=== PATIENT | female | born 1930 | race Caucasian/White ===

== ENCOUNTER 2017-12-27 09:26 | Emergency (ER) | payer BC ==
[~2017-12-27] VITALS: Ht 160 cm; Wt 62.1 kg
--- NOTE | 2017-12-27 09:45 | NUR ---
dr wagner at bedside for eval.
[2017-12-27] MEDS ORDERED: HYDROCODONE/APAP 5/325MG 1 EACH TABLET PO ONE (10:00)
[2017-12-27] MEDS ORDERED: HYDROCODONE/APAP 5/325MG 1 EACH TABLET ONE (10:04)
--- NOTE | 2017-12-27 10:08 | NUR ---
pt to radiology for bilat rib/chest xray via [facility].
--- NOTE | 2017-12-27 11:15 | NUR ---
Patient discharged to home in stable condition. Written and verbal after care instructions given. Patient verbalizes understanding of instruction.
[2017-12-27 11:16] VITALS: BP 152/60
== END 2017-12-27 11:17 | disposition home or self-care (01) ==
LOC: ER 09:29
DX: S20.212A Contusion of left front wall of thorax, initial encounter (principal); S20.211A Contusion of right front wall of thorax, initial encounter; I10 Essential (primary) hypertension; Z86.73 Personal history of transient ischemic attack (TIA), and cerebral infarction without residual deficits; E11.9 Type 2 diabetes mellitus without complications; Z88.8 Allergy status to other drugs, medicaments and biological substances; W01.0XXA Fall on same level from slipping, tripping and stumbling without subsequent striking against object, initial encounter; Y93.89 Activity, other specified; Y92.000 Kitchen of unspecified non-institutional (private) residence as the place of occurrence of the external cause; Y99.8 Other external cause status
CPT/HCPCS: 71111; 99284; A4606; Z7610

== ENCOUNTER 2022-01-15 13:01 | Inpatient (IN) | payer BC ==
[~2022-01-15] VITALS: Ht 160 cm; Wt 66.2 kg
--- NOTE | 2022-01-15 13:30 | NUR ---
SINCERE RA878 Mechanical trip/fall was seen in [place] and sent home but now having worse pain. PLACED ON BED, AAOX4, BREATHING EVEN AND UNLABORED SATURATING AT 96%RA, COMPLAINS OF PAIN AT LEFT SIDE CHEST- MID AXILLA EVERYTIME SHE MOVES 10/10 PS.
--- NOTE | 2022-01-15 14:30 | NUR ---
CASING TIER AT BED SIDE
[2022-01-15] MEDS ORDERED: FLUT16SP16 BNOSTRILS (14:36)
[2022-01-15] MEDS ORDERED: PHEN-895 PO (14:36)
[2022-01-15] MEDS ORDERED: PANT40TA49 PO (14:36)
[2022-01-15] MEDS ORDERED: GABA-532 PO (14:36)
[2022-01-15] MEDS ORDERED: TRAM50TA2 PO (14:36)
[2022-01-15] MEDS ORDERED: AMLO2.5T4 PO (14:36)
[2022-01-15] MEDS ORDERED: FAMO40TA7 PO (14:36)
--- NOTE | 2022-01-15 14:45 | NUR ---
MOVE SHEET SUBMITTED.
--- NOTE | 2022-01-15 14:59 | NUR ---
SWAB FOR COVID19 SENT TO LAB
[2022-01-15] MEDS ORDERED: ONDANSETRON HCL/PF 4 MG/2 ML VIAL IVP PRN (15:00)
[2022-01-15] MEDS ORDERED: FLUTICASONE PROPIONATE 16 GM BOTTLE NS PRN (15:00)
[2022-01-15] MEDS ORDERED: Z GUARD REMEDY 4 OZ OINT TP PRN (15:00)
[2022-01-15] MEDS ORDERED: ACETAMINOPHEN 325 MG TABLET PO PRN (15:00)
[2022-01-15] MEDS ORDERED: ZOLPIDEM TARTRATE 5 MG TABLET PO PRN (15:00)
[2022-01-15] MEDS ORDERED: MAG HYDROX/AL HYDROX/SIMETH 30 ML UDC PO PRN (15:00)
[2022-01-15] MEDS ORDERED: MAGNESIUM HYDROXIDE 30 ML UDC PO PRN (15:00)
[2022-01-15 15:22] LABS: BASOPHILS % (AUTO) 0.1 % (0.0-2.0); EOSINOPHILS % (AUTO) 2.7 % (0.0-6.0); HEMATOCRIT 40 % (33-45); HEMOGLOBIN 13.4 g/dL (11.5-14.8); LYMPHOCYTES # (AUTO) 0.8 K/uL (0.8-4.8); LYMPHOCYTES % (AUTO) 9.2 % (20.0-44.0); MEAN CORPUSCULAR HGB CONC 33 g/dl (31.0-36.0); MEAN CORPUSCULAR VOLUME 93 fL (82-100); MONOCYTES # (AUTO) 0.4 K/uL (0.1-1.30); MONOCYTES % (AUTO) 4.5 % (2.0-12.0); NEUTROPHILS # (AUTO) 7.3 K/uL (1.8-8.9); NEUTROPHILS % (AUTO) 83.5 % (43.0-81.0); PLATELET COUNT (AUTO) 103 K/uL (150-450); RED BLOOD CELL COUNT(AUTO) 4.32 MIL/uL (4.0-5.2); WHITE BLOOD COUNT (AUTO) 8.7 K/uL (4.3-11.0)
[2022-01-15 15:39] LABS: CALCIUM, SERUM 9.5 mg/dL (8.5-10.1); CARBON DIOXIDE 25 mmol/L (21-32); CHLORIDE 99 mmol/L (98-107); GLUCOSE 115 mg/dL (74-106); POTASSIUM 3.4 mmol/L (3.5-5.1); SODIUM SERUM 134 mmol/L (136-145); UREA NITROGEN, BLOOD 24 mg/dL (7-18)
--- NOTE | 2022-01-15 16:56 | NUR ---
REPORT GIVEN TO EMILIANO RN ROOM 324-1 FOR NADEGE
--- NOTE | 2022-01-15 17:00 | NUR ---
RN Receiving Note PT Arrived to unit safely via reuben, Anuja, reports discomfort and pain. Patient able to express her own concerns, and able to provide history. Pictures of bruises taken and in chart. All safety precautions taken, call light and table within reach, bed at lowest. Will move forward with initial assessment.
[2022-01-15 17:30] LABS: COLOR,URINE ORANGE (YELLOW)
[2022-01-15 17:33] LABS: BACTERIA,URINE 3+ /HPF (None Seen); WBC,URINE 81-100 /HPF (0-3)
[2022-01-15] MEDS: GABAPENTIN 100 MG CAPSULE PO SCH (18:35)
[2022-01-15] MEDS: IV NS 0.9% 1,000 ML IV PRN (18:36)
[2022-01-15] MEDS: TRAMADOL HCL 50 MG TABLET PO PRN (18:36)
--- NOTE | 2022-01-15 19:30 | NUR ---
RN OPENING NOTES RECEIVED PATIENT IN BED SLEEPING, EASY TO ROUSE WITH STIMULI. A/O X 4, TOLERATING WELL ON ROOM AIR WITH NO S/S RESPIRATORY DISTRESS. NO COMPLAINTS OF PAIN OR DISCOMFORT AT THIS TIME. INFUSING NS @ 75 ML/HR @ R AC. SAFETY MEASURES IN PLACE. BED IN LOWEST POSITION, SIDE RAILS UP X 2, WHEELS LOCKED, CALL LIGHT WITHIN REACH. WILL CONTINUE TO MONITOR.
--- NOTE | 2022-01-15 19:53 | NUR ---
RN Closing Note PT AOx4 able to express her own concerns. Patient is sleeping with no signs of distress or discomfort. IV Fluids ruining as ordered on Right FA, 20g no sign signs of infiltration. All safety precautions taken, call light and table within reach, bed at lowest position. Will endorse to night nurse pts status and plan of care.
[2022-01-15 20:00] VITALS: BP 133/57
[2022-01-15] MEDS: FAMOTIDINE (20 MG) 20 MG TABLET PO SCH (22:32)
--- NOTE | 2022-01-16 06:44 | NUR ---
RN CLOSING NOTES PATIENT IS IN BED SLEEPING, EASY TO ROUSE WITH STIMULI. NO DISTRESS NOTED AT THIS TIME. REQUESTED PAIN MED (TYLENOL 650) AT 0330. WILL ENDORSE TO THE ONCOMING NURSE.
[2022-01-16 07:06] LABS: BASOPHILS % (AUTO) 0.1 % (0.0-2.0); EOSINOPHILS % (AUTO) 4.8 % (0.0-6.0); HEMATOCRIT 40 % (33-45); HEMOGLOBIN 13.4 g/dL (11.5-14.8); LYMPHOCYTES # (AUTO) 0.8 K/uL (0.8-4.8); LYMPHOCYTES % (AUTO) 13.8 % (20.0-44.0); MEAN CORPUSCULAR HGB CONC 34 g/dl (31.0-36.0); MEAN CORPUSCULAR VOLUME 93 fL (82-100); MONOCYTES # (AUTO) 0.3 K/uL (0.1-1.30); MONOCYTES % (AUTO) 5.4 % (2.0-12.0); NEUTROPHILS # (AUTO) 4.4 K/uL (1.8-8.9); NEUTROPHILS % (AUTO) 75.9 % (43.0-81.0); PLATELET COUNT (AUTO) 99 K/uL (150-450); RED BLOOD CELL COUNT(AUTO) 4.29 MIL/uL (4.0-5.2); WHITE BLOOD COUNT (AUTO) 5.8 K/uL (4.3-11.0)
--- NOTE | 2022-01-16 07:18 | NUR ---
RN OPENING NOTES RECEIVED PATIENT IN BED , AWAKE AND VERBALLY RESPONSIVE . A/O X 4, TOLERATING WELL ON ROOM AIR WITH NO S/S RESPIRATORY DISTRESS. NO COMPLAINTS OF PAIN OR DISCOMFORT AT THIS TIME. INFUSING NS @ 75 ML/HR @ R AC. SAFETY MEASURES IN PLACE. BED IN LOWEST POSITION, SIDE RAILS UP X 2, WHEELS LOCKED, CALL LIGHT WITHIN REACH. WILL CONTINUE TO MONITOR.
[2022-01-16 07:44] LABS: CALCIUM, SERUM 9.2 mg/dL (8.5-10.1); MAGNESIUM 2.2 mg/dL (1.8-2.4); PHOSPHORUS 3.4 mg/dL (2.5-4.9); POTASSIUM 3.7 mmol/L (3.5-5.1)
[2022-01-16] MEDS: PANTOPRAZOLE 40 MG TABLET.DR PO SCH (08:13)
[2022-01-16] MEDS: AMLODIPINE BESYLATE 2.5 MG TABLET PO SCH (08:14)
[2022-01-16] MEDS: GABAPENTIN 100 MG CAPSULE PO SCH ×2 (08:15→17:15)
[2022-01-16] MEDS: HYDROMORPHONE 1 MG/1 ML DISP.SYRIN IV PRN (10:37)
--- NOTE | 2022-01-16 10:37 | NUR ---
RN NOTES PATIENT C/O OF SEVERE PAIN AND DILAUDID IV GIVEN ORDERED
[2022-01-16] MEDS: CEFTRIAXONE 1 G in IV D5W 50 ML IV SCH (11:11)
[2022-01-16 18:57] VITALS: BP 123/51
--- NOTE | 2022-01-16 19:00 | NUR ---
RN CLOSING NOTES PATIENT IN BED , AWAKE AND VERBALLY RESPONSIVE . A/O X 4, TOLERATING WELL ON ROOM AIR WITH NO S/S RESPIRATORY DISTRESS. COMPLAINTS OF PAIN OR DISCOMFORT DILAUDID IV GIVEN WITH HELP , ALL DUE MEDS GIVEN AND IV ATB OF [place]IPHEN GIVEN . INFUSING NS @ 75 ML/HR @ R AC. SAFETY MEASURES IN PLACE. BED IN LOWEST POSITION, SIDE RAILS UP X 2, WHEELS LOCKED, CALL LIGHT WITHIN REACH. ENDORSED TO NEXT SHIFT
--- NOTE | 2022-01-16 19:47 | NUR ---
RN OPENING NOTES RECEIVED PATIENT IN BED AA/O X 4,ABLE TO MAKE NEEDS KNOWN,TOLERATING WELL ON ROOM AIR,NO SIGN SOB/ RESPIRATORY DISTRESS. NO COMPLAINTS OF PAIN OR DISCOMFORT AT THIS TIME. INFUSING NS @ 75 ML/HR @ R AC. SAFETY MEASURES IN PLACE. BED IN LOWEST POSITION, SIDE RAILS UP X 2, WHEELS LOCKED, CALL LIGHT WITHIN REACH. WILL CONTINUE TO MONITOR.
[2022-01-16 20:00] VITALS: BP 134/55
[2022-01-16] MEDS: FAMOTIDINE (20 MG) 20 MG TABLET PO SCH (21:56)
--- NOTE | 2022-01-17 06:34 | NUR ---
RN CLOSING NOTES; PATIENT IN BED AA/O X 4,ABLE TO MAKE NEEDS KNOWN,TOLERATING WELL ON ROOM AIR,NO SIGN SOB/ RESPIRATORY DISTRESS. NO COMPLAINTS OF PAIN OR DISCOMFORT DURING SHIFT,DUE MEDS GIVEN ORDER,ALL NEEDS ATTENDED,. INFUSING NS @ 75 ML/HR @ R AC. SAFETY MEASURES IN PLACE. BED IN LOWEST POSITION, SIDE RAILS UP X 2, WHEELS LOCKED, CALL LIGHT WITHIN REACH. WILL ENDORSED TO NEXT SHIFT.
[2022-01-17 06:58] LABS: CALCIUM, SERUM 9.2 mg/dL (8.5-10.1); CREATININE 0.9 mg/dL (0.6-1.3); POTASSIUM 4.4 mmol/L (3.5-5.1)
--- NOTE | 2022-01-17 07:54 | NUR ---
RN OPENING NOTE PATIENT AWAKE IN BED RESTING. A/O X 4. NO PAIN NOTED AT THIS TIME. ON ROOM AIR, NO DISTRESS OR SHORTNESS OF BREATH NOTED. IV ACCESS RAC #20G, INTACT, PATENT AND FLUSHING WELL. FALL AND SAFETY MEASURES IN PLACE, BED IN LOW AND LOCK POSITION, CALL LIGHT AND TABLE WITHIN EASY REACH, SIDE RAILS UP X2. WILL CONTINUE TO MONITOR.
[2022-01-17 08:00] VITALS: BP 127/62
[2022-01-17] MEDS: GABAPENTIN 100 MG CAPSULE PO SCH ×2 (09:16→17:39)
[2022-01-17] MEDS: AMLODIPINE BESYLATE 2.5 MG TABLET PO SCH (09:16)
[2022-01-17] MEDS: PANTOPRAZOLE 40 MG TABLET.DR PO SCH (09:16)
--- NOTE | 2022-01-17 11:36 | NUR ---
RN NOTES MD AWARE REGARDING PATIENTS VTE SCORE IS 3 AND NO CHEMICAL PROPHYLAXIS FOR THE PATIENT AT THIS TIME , WAITING FOR NEW ORDER
[2022-01-17] MEDS: CEFTRIAXONE 1 G in IV D5W 50 ML IV SCH (11:57)
[2022-01-17] MEDS: IV NS 0.9% 1,000 ML IV PRN (12:59)
[2022-01-17 16:00] VITALS: BP 135/51
--- NOTE | 2022-01-17 19:28 | NUR ---
RN OPENING NOTE PATIENT AWAKE IN BED RESTING. A/O X 4. NO PAIN NOTED AT THIS TIME. ON ROOM AIR, NO DISTRESS OR SHORTNESS OF BREATH NOTED. IV ACCESS RAC #20G, INTACT, PATENT AND FLUSHING WELL. SCHEDULE MEDICATIONS ADMINISTERED. FALL AND SAFETY MEASURES IN PLACE, BED IN LOW AND LOCK POSITION, CALL LIGHT AND TABLE WITHIN EASY REACH, SIDE RAILS UP X2. WILL ENDORSE TO SATELLITE DISH INSTALLER.
--- NOTE | 2022-01-17 19:30 | NUR ---
MS RN NOTES RECEIVED LAYING COMFORTABLY ON BED,BREATHING REGULAR,NOT IN ANY FORM OF DISTRESS.SALINE LOCK RIGHT AC INTACT AND PATENT.COMPLAINTS OF RIGHT SHOULDER PAIN 3/10 ON PAIN SCALE,AWAITING RIGHT SHOULDER X-RAY.ASSIST WITH ADL'S,CALL LIGHT IN REACH,NEEDS ANTICIPATED.
[2022-01-17 20:00] VITALS: BP_SYST 113; BP_SYST 122; BP_DIAS 58; BP_DIAS 70
--- NOTE | 2022-01-17 20:30 | NUR ---
MS RN NOTES IN PUMP KEEP ON ALARMING.SALINE LOCK ON RIGHT AC AND PATIENT CAN CONTROL HERSELF TO BEND THE RIGHT ELBOW.NEW SALINE LOCK PLACE ON LEFT WRIST #22,FLUSHED AND KEPT PATENT.IVF INFUSING THIS TIME VIA IV PUMP.
[2022-01-17] MEDS ORDERED: ENOXAPARIN SODIUM 40 MG/0.4 ML DISP.SYRIN SQ ONE (21:00)
--- NOTE | 2022-01-17 21:00 | NUR ---
MS RN NOTES PLATELETS 99,WITH LOVENOX 40MG SQ ONE TIME DOSE,VERIFIED WITH HOSPITALIST ANGELICA IF OKAY TO GIVE AND HE SAID, OKAY TO GIVE, ADMINISTERED.
[2022-01-17] MEDS: FAMOTIDINE (20 MG) 20 MG TABLET PO SCH (22:04)
[2022-01-18] MEDS: HYDROMORPHONE 1 MG/1 ML DISP.SYRIN IV PRN ×2 (03:54→23:26)
--- NOTE | 2022-01-18 03:54 | NUR ---
MS RN NOTES PAIN MANAGEMENT C/O RIGHT SHOULDER PAIN 8/10 ON PAIN SCALE,DILAUDID 1MG IV GIVEN ORDERED.VITAL SIGNS STABLE.
[2022-01-18 06:03] LABS: EOSINOPHILS % (AUTO) 5.6 % (0.0-6.0); HEMATOCRIT 38 % (33-45); HEMOGLOBIN 12.7 g/dL (11.5-14.8); LYMPHOCYTES % (AUTO) 23.3 % (20.0-44.0); MEAN CORPUSCULAR HGB CONC 33 g/dl (31.0-36.0); MEAN CORPUSCULAR VOLUME 93 fL (82-100); MONOCYTES # (AUTO) 0.5 K/uL (0.1-1.30); NEUTROPHILS # (AUTO) 2.6 K/uL (1.8-8.9); NEUTROPHILS % (AUTO) 59.1 % (43.0-81.0); PLATELET COUNT (AUTO) 104 K/uL (150-450); RED BLOOD CELL COUNT(AUTO) 4.11 MIL/uL (4.0-5.2); WHITE BLOOD COUNT (AUTO) 4.4 K/uL (4.3-11.0)
--- NOTE | 2022-01-18 06:40 | NUR ---
MS RN NOTES ON BED SLEEPING.STILL WITH ON AND OFF GENERALIZED PAIN,PT/OT EVAL FOR MOBILITY.ALL DUE MEDS ADMINISTERED SCHEDULED.IVF INFUSING WELL ON LEFT WRIST.IN NO ACUTE DISTRESS.
[2022-01-18 07:34] LABS: CALCIUM, SERUM 8.8 mg/dL (8.5-10.1); CARBON DIOXIDE 26 mmol/L (21-32); CHLORIDE 105 mmol/L (98-107); CREATININE 0.8 mg/dL (0.6-1.3); GLUCOSE 115 mg/dL (74-106); MAGNESIUM 2.2 mg/dL (1.8-2.4); PHOSPHORUS 3.3 mg/dL (2.5-4.9); POTASSIUM 3.7 mmol/L (3.5-5.1); SODIUM SERUM 138 mmol/L (136-145); UREA NITROGEN, BLOOD 19 mg/dL (7-18)
--- NOTE | 2022-01-18 07:40 | NUR ---
RN OPENING NOTE RECEIVED PATIENT ASLEEP IN BED RESTING BUT EASILY ROUSED. A/O X 4, DENIES PAIN AT THIS TIME. ON ROOM AIR, NO DISTRESS OR SHORTNESS OF BREATH NOTED. IV ACCESS RAC #20G, INTACT, PATENT AND FLUSHING WELL. FALL AND SAFETY MEASURES IN PLACE, BED IN LOW AND LOCK POSITION, CALL LIGHT AND TABLE WITHIN EASY REACH, SIDE RAILS UP X2, WILL CONT WITH PLAN OF CARE DURING SHIFT.
[2022-01-18 08:00] VITALS: BP 136/46
[2022-01-18] MEDS: GABAPENTIN 100 MG CAPSULE PO SCH ×2 (08:37→16:54)
[2022-01-18] MEDS: AMLODIPINE BESYLATE 2.5 MG TABLET PO SCH (08:37)
[2022-01-18] MEDS: PANTOPRAZOLE 40 MG TABLET.DR PO SCH (08:37)
[2022-01-18] MEDS: CEFTRIAXONE 1 G in IV D5W 50 ML IV SCH (10:59)
[2022-01-18] MEDS: IV NS 0.9% 1,000 ML IV PRN (11:05)
[2022-01-18 16:00] VITALS: BP 146/58
--- NOTE | 2022-01-18 18:49 | NUR ---
MS RN CLOSING NOTES; PATIENT AWAKE IN BED RESTING. A/O X 4, DENIES PAIN AT THIS TIME. ON ROOM AIR, NO DISTRESS OR SHORTNESS OF BREATH NOTED. IV ACCESS L WRIST #22, RUNNING NS @ 75ML/HR. DUE MEDS GIVE, MADE COMFORTABLE, DRY AND CLEAN. FALL AND SAFETY MEASURES IN PLACE, BED IN LOW AND LOCK POSITION, CALL LIGHT AND TABLE WITHIN EASY REACH, SIDE RAILS UP X2, WILL ENDORSE TO PM SHIFT.
--- NOTE | 2022-01-18 19:30 | NUR ---
RN OPENING NOTE PATIENT IN BED, SLEEPING, EASILY ROUSED WITH VERBAL AND TOUCH STIMULI. PATIENT IS ON RA, TOLERATING WELL, NO SOB NOTED. BREATHING EVEN AND UNLABORED. PATIENT HAS A L WRIST 22G WITH NS AT 75 ML/HR ONGOING, INFUSING WELL. PATIENT DOES NOT REPORT ANY PAIN AT THIS TIME. SAFETY MEASURES IN PLACE: BED LOCKED AND IN LOWEST POSITION, CALL LIGHT WITHIN REACH, SIDE RAILS UP. WILL MONITOR PATIENT CLOSELY.
[2022-01-18 20:00] VITALS: BP 145/54
[2022-01-18] MEDS: FAMOTIDINE (20 MG) 20 MG TABLET PO SCH (21:38)
[2022-01-18] MEDS: ENOXAPARIN SODIUM 40 MG/0.4 ML DISP.SYRIN SQ SCH (21:40)
--- NOTE | 2022-01-18 23:26 | NUR ---
PATIENT COMPLAINING OF 10/10 PAIN ON R KNEE PAIN AND SHOULDER PAIN. DILAUDID GIVEN TO MANAGE THE PAIN.
[2022-01-19] MEDS: IV NS 0.9% 1,000 ML IV PRN ×2 (04:51→17:23)
--- NOTE | 2022-01-19 06:38 | NUR ---
RN CLOSING NOTE PATIENT IN BED, SLEEPING, EASILY ROUSED WITH VERBAL AND TOUCH STIMULI. PATIENT HAD PERIODS OF FORGETFULNESS/CONFUSION DURING THE SHIFT. ABLE TO REORIENT BACK TO PRESENT. PATIENT IS ON RA, TOLERATING WELL, NO SOB NOTED. BREATHING EVEN AND UNLABORED. PATIENT HAS A L WRIST 22G WITH NS AT 75 ML/HR ONGOING, INFUSING WELL. PAIN MANAGED WITH DILAUDID IV. SAFETY MEASURES IN PLACE: BED LOCKED AND IN LOWEST POSITION, CALL LIGHT WITHIN REACH, SIDE RAILS UP. ALL NEEDS MET AND ATTENDED. ALL ORDERS CARRIED OUT. WILL ENDORSE TO DAY SHIFT NURSE FOR NADEGE.
--- NOTE | 2022-01-19 07:23 | NUR ---
MS RN OPENING NOTES: PATIENT ASLEEP IN BED RESTING, EASILY ROUSED, A/O X 4, ABLE TO VERBALIZE NEEDS, DENIES PAIN AT THIS TIME. ON ROOM AIR, NO DISTRESS OR SHORTNESS OF BREATH NOTED. IV ACCESS L WRIST #22, RUNNING NS @ 75ML/HR. FALL AND SAFETY MEASURES IN PLACE, BED IN LOW AND LOCK POSITION, CALL LIGHT AND TABLE WITHIN EASY REACH, SIDE RAILS UP X2,WILL CARRY OUT PLAN OF CARE THROUGHOUT SHIFT.
[2022-01-19] MEDS: PANTOPRAZOLE 40 MG TABLET.DR PO SCH (08:46)
[2022-01-19] MEDS: GABAPENTIN 100 MG CAPSULE PO SCH ×2 (08:46→16:36)
[2022-01-19] MEDS: AMLODIPINE BESYLATE 2.5 MG TABLET PO SCH (08:47)
[2022-01-19] MEDS: CEFTRIAXONE 1 G in IV D5W 50 ML IV SCH (11:15)
[2022-01-19 16:06] VITALS: BP 160/60
[2022-01-19] MEDS: TRAMADOL HCL 50 MG TABLET PO PRN (17:41)
--- NOTE | 2022-01-19 18:44 | NUR ---
MS RN CLOSING NOTES: PATIENT ASLEEP IN BED RESTING, EASILY ROUSED, A/O X 4, ABLE TO VERBALIZE NEEDS, C/O R SHOULDER PAIN /, MEDICATED PER PRN ORDER AND GIVEN HEAT PACK TO ALLEVIATE PAIN. ON ROOM AIR, NO DISTRESS OR SHORTNESS OF BREATH NOTED. IV ACCESS L WRIST #22, RUNNING NS @ 75ML/HR. PUREWICK DRAINED CLEAR YELLOW URINE TOTAL 900CC DURING SHIFT. FALL AND SAFETY MEASURES IN PLACE, BED IN LOW AND LOCK POSITION, CALL LIGHT AND TABLE WITHIN EASY REACH, SIDE RAILS UP X2,WILL ENDORSE TO PM SHIFT.
--- NOTE | 2022-01-19 19:42 | NUR ---
MS RN OPENING NOTES: RECEIVED PATIENT IN BED AA/O X 4, ABLE TO VERBALIZE NEEDS,ON ROOM AIR ARELI WELL NO SIGN SOB/DISTRESS NOTED. IV ACCESS L WRIST #22, RUNNING NS @ 75ML/HR. FALL AND SAFETY MEASURES IN PLACE, BED IN LOW AND LOCK POSITION, CALL LIGHT AND TABLE WITHIN EASY REACH,WILL CONTINUE TO MONITOR.
[2022-01-19 21:02] VITALS: BP 137/55
[2022-01-19] MEDS: FAMOTIDINE (20 MG) 20 MG TABLET PO SCH (21:24)
[2022-01-19] MEDS: ENOXAPARIN SODIUM 40 MG/0.4 ML DISP.SYRIN SQ SCH (21:26)
--- NOTE | 2022-01-20 06:20 | NUR ---
MS RN OPENING NOTES; PATIENT IN BED AA/O X 4, ABLE TO VERBALIZE NEEDS,ON ROOM AIR ARELI WELL NO SIGN SOB/DISTRESS NOTED.DUE MEDS GIVEN ORDER,ALL NEEDS ATTENDED, IV ACCESS L WRIST #22, RUNNING NS @ 75ML/HR. FALL AND SAFETY MEASURES IN PLACE, BED IN LOW AND LOCK POSITION, CALL LIGHT AND TABLE WITHIN EASY REACH,WILL ENDORSED TO NEXT SHIFT.
--- NOTE | 2022-01-20 07:23 | NUR ---
RN OPENING NOTE RECEIVED PATIENT IN BED, AWAKE, A/O X4, VERBALLY RESPONSIVE. NO SIGNS OF ACUTE DISTRESS NOTED. ON ROOM AIR, NO SOB NOTED, BREATHING EVEN AND UNLABORED. DENIES ANY PAIN AT THIS TIME. NOTED WITH IV ACCESS ON LEFT WRIST #22G, INTACT AND PATENT WITH NS @75 ML/HR RUNNING. ALSO NOTED WITH PUREWICK CATHETER TO WALL SUCTION WITH DEBI COLORED URINE. SAFETY MEASURE IN PLACE. BED IN LOWEST AND LOCKED POSITION, SIDE RAILS UP X2, CALL LIGHT PLACED WITHIN EASY REACH. WILL CONTINUE TO MONITOR PATIENT.
[2022-01-20 08:16] VITALS: BP 128/50
[2022-01-20] MEDS: PANTOPRAZOLE 40 MG TABLET.DR PO SCH (08:27)
[2022-01-20 08:28] VITALS: BP 128/50
[2022-01-20] MEDS: GABAPENTIN 100 MG CAPSULE PO SCH (08:28)
[2022-01-20] MEDS: AMLODIPINE BESYLATE 2.5 MG TABLET PO SCH (08:28)
[2022-01-20] MEDS: HYDROMORPHONE 1 MG/1 ML DISP.SYRIN IV PRN (10:13)
[2022-01-20] MEDS: CEFTRIAXONE 1 G in IV D5W 50 ML IV SCH (10:51)
--- NOTE | 2022-01-20 13:45 | NUR ---
SWING RIDE OPERATOR NOTE PATIENT DISCHARGED TO [facility] IN STABLE CONDITION. PATIENT A/O X4, VERBALLY RESPONSIVE AND ABLE TO MAKE NEEDS KNOWN. VITAL SIGNS TAKEN, STABLE. IV ACCESS ON LEFT WRIST REMOVED, NO BLEEDING NOTED, PRESSURE DRESSING APPLIED TO SITE. PURE WICK CATHETER REMOVED. ALL BELONGINGS TOOK BY HOME, EXCEPT FOR PATIENT'S CELLPHONE AND LEG IMMOBILIZER. DISCHARGE FORMS SIGNED BY PATIENT. HEALTH TEACHINGS PROVIDED TO PATIENT WITH VERBALIZATION OF UNDERSTANDING. REPORT GIVEN TO ALEKSANDR SULLIVAN FROM [facility]. [facility] CAME AND PICKED UP PATIENT @1340 VIA GURNEY, IN STABLE CONDITION. CN AWARE OF PATIENT'S DISCHARGE.
== END 2022-01-20 13:40 | DRG 690 ==
LOC: ER 13:05 → MED 16:46
PROVIDERS: ADMIT Nurse Practitioner Acute Care; ATTEND Student in an Organized Health Care Education/Training Program
DX: N39.0 Urinary tract infection, site not specified (principal); K21.9 Gastro-esophageal reflux disease without esophagitis; E11.40 Type 2 diabetes mellitus with diabetic neuropathy, unspecified; W01.0XXA Fall on same level from slipping, tripping and stumbling without subsequent striking against object, initial encounter; Z20.822 Contact with and (suspected) exposure to COVID-19; I10 Essential (primary) hypertension; Z86.73 Personal history of transient ischemic attack (TIA), and cerebral infarction without residual deficits; Z91.041 Radiographic dye allergy status; Z79.899 Other long term (current) drug therapy; Z96.651 Presence of right artificial knee joint; Y92.009 Unspecified place in unspecified non-institutional (private) residence as the place of occurrence of the external cause; M19.90 Unspecified osteoarthritis, unspecified site; G89.29 Other chronic pain; B96.89 Other specified bacterial agents as the cause of diseases classified elsewhere; Z86.79 Personal history of other diseases of the circulatory system; I44.7 Left bundle-branch block, unspecified; R26.9 Unspecified abnormalities of gait and mobility; S22.41XD Multiple fractures of ribs, right side, subsequent encounter for fracture with routine healing; S82.001D Unspecified fracture of right patella, subsequent encounter for closed fracture with routine healing
CPT/HCPCS: 36415; 71111-TC; 73030-TC; 80048-TC; 81001; 83735-TC; 84100-TC; 85025-TC; 85730-TC; 87081-TC; 87086-TC; 87186-TC; 97116-TC; 97530-TC; 97535-TC; C9803; G0378; J0696; J1170; J1650; J7030; J7060